=== PATIENT | male | born 1995 | race African-American/Black ===

== ENCOUNTER 2017-03-11 10:43 | Emergency (ER) | payer OTHER ==
[~2017-03-11] VITALS: Ht 177.8 cm; Wt 106.6 kg
[2017-03-11 10:43] VITALS: BP_SYST 131
[~2017-03-11 10:43] MED LIST: ALBU17AE26
[2017-03-11] MEDS ORDERED: ONDANSETRON HCL 4 MG/2 ML VIAL IVP ONE (11:30)
[2017-03-11] MEDS ORDERED: SUMAtriptan SUCCINATE 6 MG/0.5 ML VIAL SUBCUT ONE (11:30)
[2017-03-11] MEDS ORDERED: ONDANSETRON 4 MG ODT TAB PO ONE (11:30)
[2017-03-11 11:39] VITALS: BP_SYST 125
== END 2017-03-11 11:50 | disposition home or self-care (01) ==
LOC: SED 10:43
DX: G43.909 Migraine, unspecified, not intractable, without status migrainosus (principal); J45.909 Unspecified asthma, uncomplicated; Z79.51 Long term (current) use of inhaled steroids
CPT/HCPCS: 96372; 99283; J3030; Q0162

== ENCOUNTER 2017-06-30 22:36 | Emergency (ER) | payer OTHER ==
[~2017-06-30] VITALS: Ht 180.3 cm; Wt 106.6 kg
[2017-06-30 22:52] VITALS: BP_SYST 165
[2017-06-30] MEDS ORDERED: NACL 0.9% 1,000 ML IV ONE (23:15)
[2017-06-30 23:39] LABS: BASOPHILS # (AUTO) 0.1 K/uL (0.0-0.2); BASOPHILS % (AUTO) 0.6 % (0.0-2.0); EOSINOPHILS # (AUTO) 0.4 K/uL (0.0-0.4); EOSINOPHILS % (AUTO) 4.7 % (0.0-4.0); HEMATOCRIT 47.8 % (36-54); HEMOGLOBIN 15.9 g/dL (14.0-18.0); LYMPHOCYTES # (AUTO) 2.2 K/uL (1.0-5.5); LYMPHOCYTES % (AUTO) 23.6 % (20.5-51.5); MEAN CORPUSCULAR HEMOGLOBIN 32 pg (27-31); MEAN CORPUSCULAR HGB CONC 33 % (32-36); MEAN CORPUSCULAR VOLUME 97 fL (79.0-98.0); MONOCYTES # (AUTO) 0.5 K/uL (0.0-1.0); MONOCYTES % (AUTO) 5.6 % (1.7-9.3); NEUTROPHILS # (AUTO) 6.3 K/uL (1.8-7.7); NEUTROPHILS % (AUTO) 65.5 % (40.0-70.0); PLATELET COUNT (AUTO) 196 K/uL (130-430); RED BLOOD CELL COUNT(AUTO) 4.93 MIL/uL (4.2-6.2); RED CELL DISTRIBUTION WIDTH 11.2 % (9.0-15.0); WHITE BLOOD COUNT (AUTO) 9.5 K/uL (4.8-10.8)
[2017-06-30 23:46] LABS: CALCIUM 10.1 mg/dL (8.4-11.0); CREATININE 1.33 mg/dL (0.55-1.30); POTASSIUM 3.9 mmol/L (3.5-5.1)
[2017-06-30 23:51] LABS: ALBUMIN 4.5 g/dL (3.4-4.8); TOTAL BILIRUBIN 1.2 mg/dL (0.0-1.0)
[2017-07-01 00:25] VITALS: BP_SYST 148
== END 2017-07-01 00:27 | disposition home or self-care (01) ==
LOC: SED 22:36
DX: R07.89 Other chest pain (principal); T43.615A Adverse effect of caffeine, initial encounter; J45.909 Unspecified asthma, uncomplicated; Y92.89 Other specified places as the place of occurrence of the external cause
CPT/HCPCS: 36415; 71010; 80053; 85025; 93005; 96360; 99285; J7030

== ENCOUNTER 2018-01-28 21:16 | Emergency (ER) | payer OTHER ==
[~2018-01-28] VITALS: Ht 180.3 cm; Wt 104.3 kg
[2018-01-28 21:19] VITALS: BP_SYST 160
== END 2018-01-28 21:35 | disposition home or self-care (01) ==
LOC: SED 21:16
DX: T59.891A Toxic effect of other specified gases, fumes and vapors, accidental (unintentional), initial encounter (principal); F41.9 Anxiety disorder, unspecified; Y92.89 Other specified places as the place of occurrence of the external cause
CPT/HCPCS: 99283

== ENCOUNTER 2019-05-19 23:56 | Emergency (ER) | payer OTHER | END 2019-05-20 00:17 | disposition left against medical advice (07) | LOC: SED 23:56 | DX: S69.90XA Unspecified injury of unspecified wrist, hand and finger(s), initial encounter (principal); Z53.21 Procedure and treatment not carried out due to patient leaving prior to being seen by health care provider; X58.XXXA Exposure to other specified factors, initial encounter; Y93.89 Activity, other specified; Y92.89 Other specified places as the place of occurrence of the external cause; Y99.8 Other external cause status ==

== ENCOUNTER 2019-05-20 02:42 | Emergency (ER) | payer OTHER ==
[~2019-05-20] VITALS: Ht 180.3 cm; Wt 104.3 kg
[2019-05-20 03:18] VITALS: BP_SYST 155
[2019-05-20] MEDS ORDERED: KETOROLAC TROMETHAMINE 60 MG/2 ML VIAL IM ONE (03:45)
[2019-05-20] MEDS ORDERED: DIPH-TET-PERTUS Vaccine 0.5 ML VIAL (ADACEL) I.M. ONE ×2 (03:45→04:15)
[2019-05-20 05:48] VITALS: BP_SYST 128
== END 2019-05-20 05:48 | disposition home or self-care (01) ==
LOC: SED 02:42
DX: S62.302A Unspecified fracture of third metacarpal bone, right hand, initial encounter for closed fracture (principal); Y04.0XXA Assault by unarmed brawl or fight, initial encounter; Y93.89 Activity, other specified; Y92.89 Other specified places as the place of occurrence of the external cause; Y99.8 Other external cause status
CPT/HCPCS: 29125; 99283; 73130; 96372; J1885

== ENCOUNTER 2019-06-26 15:31 | Emergency (ER) | payer OTHER ==
[~2019-06-26] VITALS: Ht 175.3 cm; Wt 86.2 kg
[2019-06-26 15:42] VITALS: BP_SYST 154
== END 2019-06-26 17:47 | disposition left against medical advice (07) ==
LOC: SED 15:31
DX: R53.1 Weakness (principal); R06.02 Shortness of breath; Z53.21 Procedure and treatment not carried out due to patient leaving prior to being seen by health care provider
CPT/HCPCS: 71045; 99281

== ENCOUNTER 2021-11-12 00:31 | Emergency (ER) | payer OTHER, SELFPAY ==
[~2021-11-12] VITALS: Ht 180.3 cm; Wt 108.9 kg
[2021-11-12 01:00] VITALS: BP_SYST 126
[2021-11-12] MEDS ORDERED: cefTRIAXone 500 MG in LIDOCAINE 1%, 20 ML MDV 1 ML IM ONE (03:00)
[2021-11-12] MEDS ORDERED: AZITHROMYCIN 250 MG TABLET PO ONE (03:00)
[2021-11-12 03:36] LABS: BILIRUBIN,URINE NEGATIVE (NEGATIVE); BLOOD, URINE NEGATIVE (NEGATIVE); CLARITY/URINE CLEAR (CLEAR); COLOR,URINE YELLOW (YELLOW); GLUCOSE,URINE NEGATIVE (NEGATIVE); KETONES,URINE NEGATIVE (NEGATIVE); LEUKOCYTE ESTERASE ,URINE NEGATIVE (NEGATIVE); NITRITE, URINE NEGATIVE (NEGATIVE); PH,URINE 7.5 (5.0-8.0); PROTEIN URINE TRACE (NEGATIVE)
[2021-11-12] MEDS ORDERED: DOXY100C PO (04:06)
[2021-11-12 05:05] LABS: BACTERIA,URINE RARE /HPF (None Seen); RBC,URINE 0-3 /HPF (0-3); WBC,URINE 0-3 /HPF (0-3)
[2021-11-12 05:07] LABS: MUCUS,URINE None Seen /LPF (None Seen)
[2021-11-14 19:06] LABS: CHLAMYDIA TRACHOMATIS NAA Negative (Negative); NEISSERIA GONORRHOEAE NAA Negative (Negative)
== END 2021-11-12 04:13 | disposition home or self-care (01) ==
LOC: SED 00:31
DX: N34.2 Other urethritis (principal); Z79.899 Other long term (current) drug therapy
CPT/HCPCS: 81000; 87086; 87491; 87591; 96372; 99283; J0696; Q0144

== ENCOUNTER → 2024-02-10 | Emergency (ER) | payer SELFPAY ==
[~2024-02-10] VITALS: Ht 175.3 cm; Wt 108.9 kg
[~2024-02-10] MED LIST changes: +DOXY100C PO; +HYDR-3917 PO; +IBUP-1971 PO
[2024-02-10 11:40] VITALS: BP_SYST 148; PULSE 96; RESP 18; TEMP 97.1; O2SAT 99
[2024-02-10 12:14] LABS: BASOPHILS # (AUTO) 0.1 K/uL (0.0-0.2); BASOPHILS % (AUTO) 0.8 % (0.0-2.0); EOSINOPHILS # (AUTO) 0.4 K/uL (0.0-0.4); EOSINOPHILS % (AUTO) 5.7 % (0.0-4.0); HEMATOCRIT 45.9 % (36-54); HEMOGLOBIN 16.2 g/dL (14.0-18.0); LYMPHOCYTES # (AUTO) 2.1 K/uL (1.0-5.5); LYMPHOCYTES % (AUTO) 31.3 % (20.5-51.5); MEAN CORPUSCULAR HEMOGLOBIN 34 pg (27-31); MEAN CORPUSCULAR HGB CONC 35 % (32-36); MEAN CORPUSCULAR VOLUME 96 fL (79.0-98.0); MONOCYTES # (AUTO) 0.6 K/uL (0.0-1.0); MONOCYTES % (AUTO) 8.5 % (1.7-9.3); NEUTROPHILS # (AUTO) 3.6 K/uL (1.8-7.7); NEUTROPHILS % (AUTO) 53.7 % (40.0-70.0); PLATELET COUNT (AUTO) 191 K/uL (130-430); RED BLOOD CELL COUNT(AUTO) 4.79 MIL/uL (4.2-6.2); RED CELL DISTRIBUTION WIDTH 12.4 % (9.0-15.0); WHITE BLOOD COUNT (AUTO) 6.7 K/uL (4.8-10.8)
[2024-02-10 12:33] LABS: ANION GAP 8 (5-15); CARBON DIOXIDE 27 mmol/L (23-29); CHLORIDE 104 mmol/L (98-107); CREATININE 1.32 mg/dL (0.55-1.30); GFR AFRICAN AMERICAN 83 mL/min (>90); GLUCOSE 106 mg/dL (74-106); SODIUM SERUM 139 mmol/L (136-145); UREA NITROGEN, BLOOD 12 mg/dL (8-21)
[2024-02-10 12:34] LABS: GFR NON AFRICAN-AMERICAN 69 mL/min (>90)
[2024-02-10 12:38] LABS: CALCIUM 9.3 mg/dL (8.4-11.0)
[2024-02-10 13:49] VITALS: BP_SYST 132; PULSE 87; RESP 18; TEMP 97.1; O2SAT 99
== END | disposition home or self-care (01) ==
LOC: SED 11:30
DX: R07.89 Other chest pain (principal); J45.909 Unspecified asthma, uncomplicated; Z79.2 Long term (current) use of antibiotics
CPT/HCPCS: 36415; 71045; 80048; 84484; 85025; 93005; 99285

== ENCOUNTER 2024-06-05 14:03 | Emergency (ER) | payer SELFPAY ==
[~2024-06-05] VITALS: Ht 180.3 cm; Wt 113.4 kg
[2024-06-05 14:07] VITALS: BP_SYST 146; PULSE 105; RESP 20; TEMP 98.3; O2SAT 96
[2024-06-05] MEDS ORDERED: PRO20 PO (14:54)
[2024-06-05] MEDS ORDERED: BENZ1LOZ73 PO (14:54)
[2024-06-05 15:01] VITALS: BP_SYST 146; PULSE 105; RESP 20; TEMP 98.3; O2SAT 96
== END 2024-06-05 15:03 | disposition home or self-care (01) ==
LOC: SED 14:03
DX: J39.2 Other diseases of pharynx (principal); K21.9 Gastro-esophageal reflux disease without esophagitis; Z79.899 Other long term (current) drug therapy; Z79.2 Long term (current) use of antibiotics
CPT/HCPCS: 99283

== ENCOUNTER 2024-07-08 20:35 | Emergency (ER) | payer SELFPAY ==
[~2024-07-08] VITALS: Ht 177.8 cm; Wt 113.4 kg
[~2024-07-08 20:35] MED LIST changes: +BENZ1LOZ73 PO; +LIDO15SO8 MM; +PRO20 PO
[2024-07-08 20:41] VITALS: BP_SYST 140; PULSE 76; RESP 18; TEMP 97.2; O2SAT 99
[2024-07-08] MEDS: LISINOPRIL 10 MG TABLET (PRINIVIL) PO ONE (22:06)
[2024-07-08 22:23] LABS: ALANINE AMINOTRANSFERASE 36 U/L (12-78); ALBUMIN 4.1 g/dL (3.4-4.8); ANION GAP 10 (5-15); ASPARTATE AMINOTRANSFERASE 20 U/L (10-37); BILIRUBIN,DIRECT 0.2 mg/dL (0.0-0.3); CALCIUM 8.8 mg/dL (8.4-11.0); CARBON DIOXIDE 25 mmol/L (23-29); CHLORIDE 105 mmol/L (98-107); CREATININE 1.26 mg/dL (0.55-1.30); GFR AFRICAN AMERICAN 88 mL/min (>90); GLUCOSE 91 mg/dL (74-106); POTASSIUM 3.7 mmol/L (3.5-5.1); SODIUM SERUM 140 mmol/L (136-145); TOTAL PROTEIN, SERUM 7.1 g/dL (6.4-8.3); UREA NITROGEN, BLOOD 11 mg/dL (8-21)
[2024-07-08 22:24] LABS: GFR NON AFRICAN-AMERICAN 72 mL/min (>90)
[2024-07-08 22:31] LABS: BASOPHILS # (AUTO) 0.1 K/uL (0.0-0.2); BASOPHILS % (AUTO) 0.7 % (0.0-2.0); EOSINOPHILS # (AUTO) 0.2 K/uL (0.0-0.4); EOSINOPHILS % (AUTO) 2.2 % (0.0-4.0); HEMATOCRIT 46.2 % (36-54); LYMPHOCYTES # (AUTO) 2.6 K/uL (1.0-5.5); LYMPHOCYTES % (AUTO) 27.7 % (20.5-51.5); MEAN CORPUSCULAR HEMOGLOBIN 33 pg (27-31); MEAN CORPUSCULAR HGB CONC 35 % (32-36); MEAN CORPUSCULAR VOLUME 96 fL (79.0-98.0); MONOCYTES # (AUTO) 0.7 K/uL (0.0-1.0); MONOCYTES % (AUTO) 7.2 % (1.7-9.3); NEUTROPHILS % (AUTO) 62.2 % (40.0-70.0); PLATELET COUNT (AUTO) 181 K/uL (130-430); RED BLOOD CELL COUNT(AUTO) 4.82 MIL/uL (4.2-6.2); RED CELL DISTRIBUTION WIDTH 12.5 % (9.0-15.0); WHITE BLOOD COUNT (AUTO) 9.6 K/uL (4.8-10.8)
[2024-07-08 22:32] LABS: BILIRUBIN,URINE NEGATIVE (NEGATIVE); BLOOD, URINE NEGATIVE (NEGATIVE); CLARITY/URINE CLEAR (CLEAR); COLOR,URINE YELLOW (YELLOW); GLUCOSE,URINE NEGATIVE (NEGATIVE); KETONES,URINE NEGATIVE (NEGATIVE); LEUKOCYTE ESTERASE ,URINE NEGATIVE (NEGATIVE); NITRITE, URINE NEGATIVE (NEGATIVE); PROTEIN URINE TRACE (NEGATIVE)
[2024-07-08 22:41] LABS: BACTERIA,URINE None Seen /HPF (None Seen); MUCUS,URINE None Seen /LPF (None Seen); RBC,URINE 0-3 /HPF (0-3); URINE SULFO SALICYLIC ACID NEGATIVE (NEGATIVE); WBC,URINE NONE SEEN /HPF (0-3)
[2024-07-08] MEDS ORDERED: LOSA-413 PO (22:49)
[2024-07-08 22:54] VITALS: BP_SYST 143; PULSE 88; RESP 19; TEMP 98.9; O2SAT 97
== END 2024-07-08 22:54 | disposition home or self-care (01) ==
LOC: SED 20:35
DX: I10 Essential (primary) hypertension (principal); R07.89 Other chest pain; Z79.899 Other long term (current) drug therapy; Z79.2 Long term (current) use of antibiotics
CPT/HCPCS: 36415; 71045; 71250-TC; 80048; 80076; 81000; 81001; 81015; 83880; 84484; 85025; 85379; 93005; 99285